=== PATIENT | male | born 1935 | race African-American/Black ===

== ENCOUNTER → 2016-12-12 | Outpatient (CLI) | payer OTHER ==
[~2016-12-12] MED LIST: IOPAMIDOL (ISOVUE-300) 100 ML BTL IV ONE
[2016-12-12 15:33] LABS: CREATININE 1.2 mg/dL (0.7-1.3)
== END ==
LOC: FIMAGING 14:38
PROVIDERS: ATTEND Urology
DX: R93.422 Abnormal radiologic findings on diagnostic imaging of left kidney (principal); R93.3 Abnormal findings on diagnostic imaging of other parts of digestive tract; M45.9 Ankylosing spondylitis of unspecified sites in spine; I72.8 Aneurysm of other specified arteries
CPT/HCPCS: 74170; Q9967

== ENCOUNTER → 2017-06-12 | Outpatient (CLI) | payer OTHER ==
[~2017-06-12] MED LIST changes: +IOPAMIDOL (ISOVUE 370) 100 ML BTL IV ONE; -IOPAMIDOL (ISOVUE-300) 100 ML BTL IV ONE
== END ==
LOC: FIMAGING 15:22
PROVIDERS: ATTEND Internal Medicine
DX: I25.10 Atherosclerotic heart disease of native coronary artery without angina pectoris (principal); I70.0 Atherosclerosis of aorta; M48.14 Ankylosing hyperostosis [Forestier], thoracic region
CPT/HCPCS: 71275; Q9967

== ENCOUNTER → 2018-08-12 | Outpatient (CLI) | payer OTHER ==
--- NOTE | 2018-08-12 16:21 | ECHO ---
[email or web address] [address] [address] Main: [phone] Fax: Transthoracic Echocardiogram Name: JOIE ANDERSON MR#: [id number] Study Date: 08/12/2018 Study Time: 02:09 PM Date of : 1935 Age: 83 year(s) Height: 180.3 cm (71 in.) Weight: 86.18 kg (190 lb.) BSA: 2.06 m2 Gender: Male Examination: Indication: SOB/Pacer Image Quality: Contrast: Requested by: Eri Crawford BP: / Heart Rate: Rhythm: Indication: SOB/Pacer Procedure Staff Subway Train Operator: Yoon Gomez [facility] Reading Physician: Eri Crawford MD Requesting Provider: Vipin Pena Conclusions: There is a pacemaker lead noted in the right ventricle. This was a modified Tacho protocol stress echo. LV segmental wall motion was normal pre and post exercise (with little or no increase in heart rate). RVSP was 33mmHG pre exercise. RVSP was 42-48mmHG post exercise. Pre exercise: mild AR Post exercise: moderate AR Pre exercise: mild TR Post exercise: moderate TR. No obvious ischemia at the level of stress achieved. The increase in PA pressures post exercise is unlikely to be clinically significant. Patient did have blunted blood pressure response to exercise. Please see dicated stress test report. Measurements: Chambers Valvular Assessment AV/MV Valvular Assessment TV/PV Normal Normal Normal Name Value Range Name Value Range Name Value Range AR (PHT): 505 ms ( - ) TR Vmax: 3.26 mm/s ( - ) TR PGmax: 43 mmHg ( - ) syst. PAP: 48 mmHg ( - ) Continued Measurements: Valvular Assessment AV/MV Valvular Assessment TV/PV Name Value Name Value AR Vmax: 3.92 cm/s CVP (est.): 5 mmHg Findings: Right Ventricle: There is a pacemaker lead noted in the right ventricle. Exam Comments: Patient: JOIE ANDERSON Study Date: 08/12/2018 Page 1 of 2 02:09 PM This was a modified Tacho protocol stress echo. LV segmental wall motion was normal pre and post exercise (with little or no increase in heart rate). RVSP was 33mmHG pre exercise. RVSP was 42-48mmHG post exercise. Pre exercise: mild AR Post exercise: moderate AR Pre exercise: mild TR Post exercise: moderate TR. (No Signature Object) Patient: JOIE ANDERSON Study Date: 08/12/2018 Page 2 of 2 02:09 PM [id number]
--- NOTE | 2018-08-12 19:11 | CPIP ---
DATE OF PROCEDURE: 08/12/2018 PROCEDURE: Exercise echocardiogram. INDICATION: Exertional dyspnea. DESCRIPTION OF PROCEDURE: Informed consent was obtained. The patient was established to the residential monitor. His pacemaker was interrogated. He then exercised on a modified Tacho protocol for 6 jeremiah danielle and 49 seconds achieving a workload of 3.7 METS. Test was stopped due to dyspnea. COMPLICATIONS: None. FINDINGS: 1. Pacemaker interrogation: The patient is 100% ventricularly paced because he has underlying compl ete heart block. His AV delay is 220 milliseconds. He did have a 23-hour episode of atrial fibrilla tion on March 25 of this year and otherwise has had short episodes of atrial tachycardia. With exer cise, the patient had an appropriate [place] sinus node response reaching 80 beats per minute with rogelio tricular pacing. There were no dropped beats. His rate responsiveness is set aggressively. It was felt that no modifications were needed for his pacemaker and the device is functioning normally. 2. EKG: The patient was A sensed, V paced and AV paced throughout the test. Therefore, the EKG is not interpretable for cardiac ischemia. 3. Hemodynamic response to exercise: The patient's heart rate increased appropriately from 64 beats per minute to 80 beats per minute. This was his own [place] sinus rhythm. Resting blood pressure wa s 108/60 and increased only to 110/60, which is a blunted response to exercise. His oxygen saturatio n remained above 90% throughout testing. 4. Pre-exercise echocardiogram: A limited echocardiogram shows normal LV systolic function without regional wall motion abnormality. Mild aortic and tricuspid regurgitation. Estimated pulmonary koko ry pressure 33 mmHg. 5. Immediate post-stress echocardiogram shows normal LV function without regional wall motion abnorm ality, although the patient did not reach 85% of age-predicted max heart rate. Therefore, this is no t diagnostic or exclusive for ischemia. His aortic regurgitation increased to the moderate range. H is tricuspid regurgitation increased to the moderate range, and his PA pressures increased slightly t o between 43 and 48 mmHg. CONCLUSIONS: 1. Normally functioning dual-chamber pacemaker with appropriate rate responsiveness. 2. No evidence of cardiac ischemia at the level of work load achieved. This was not a test designed to detect cardiac ischemia. 3. Blunted blood pressure response to exercise. Consideration for stopping Cartia and decreasing or stopping his diuretics. The patient reports that since being on Bumex for a week, his shortness of breath with exertion has not improved. 4. Valvular heart disease and pulmonary hypertension: This is in the rade-uy-kpcycjch range for bot h entities. I do not think that his valvular disease or pulmonary hypertension are significantly con tributing to symptoms at this time. Would recommend surveillance echocardiogram, next in 6 months. Approximately 40 minutes was spent in supervising the stress test, coordinating data, discussion with Dr. Pena. The patient is currently in stable condition and will follow up with Dr. Pena. /[id number]/MODL
== END ==
LOC: BCP 13:41
PROVIDERS: ATTEND Internal Medicine Cardiovascular Disease
DX: R06.09 Other forms of dyspnea (principal)

== ENCOUNTER 2018-08-20 07:37 | Day surgery (SDC) | payer OTHER ==
[2018-08-20] MEDS ORDERED: ceFAZolin 2 GM/DEXTROSE 100 ML IV ONE (07:50)
[2018-08-20] MEDS ORDERED: LR 1,000 ML IV ONE (07:51)
[2018-08-20] MEDS ORDERED: SODIUM BICARBONATE 50 MEQ/50 ML SYR ONE (07:52)
[2018-08-20] MEDS ORDERED: BUPIVACAINE 0.5% 30 ML SDV ONE (07:52)
[2018-08-20] MEDS ORDERED: HYDROGEN PEROXIDE 473 ML BOTTLE TP ONE (07:52)
[2018-08-20] MEDS ORDERED: LIDOCAINE 1% 300 MG/30 ML SDV ONE (07:52)
--- NOTE | 2018-08-20 08:04 | PDHPUP ---
History & Physical Update H&P update statement: This history and physical update is based on an assessment of the patient which was completed after admission or registration (within 24 hours), but prior to the surgery/procedure. H&P update: H&P reviewed & patient examined, no change in patient's condition since H&P completed
--- NOTE | 2018-08-20 09:56 | PDANEPAE ---
ANE History of Present Illness 83 yo with right breast mass ANE Past Medical History - Cardiovascular History Hx Hypertension: Yes Hx Arrhythmias: Yes Hx Chest Pain: No Hx Coronary Artery / Peripheral Vascular Disease: Yes Hx CHF / Valvular Disease: Yes Hx Palpitations: No Cardiovascular History Comment: Hx of HTN, however, recently taken off Cardia as pressures were low. SECOND DEGREE AV BLOCK MOBITZ II. THIRD DEGREE AV BLOCK. CARDIAC CATH/STENT/PACEMAKER 05/23/2015. tricuspid regurgitation - Pulmonary History Hx COPD: No Hx Asthma/Reactive Airway Disease: No Hx Recent Upper Respiratory Infection: No Hx Oxygen in Use at Home: Yes O2 in Use at Home (L/minute): 3L O2 @ noc w/Cpap Hx Sleep Apnea: Yes Sleep Apnea Screening Result - Last Documented: Positive Pulmonary History Comment: SILVINO - uses Cpap w/O2. recent issues with SOB with exertion - Neurologic History Hx Cerebrovascular Accident: No Hx Seizures: No Hx Dementia: No Neurologic History Comment: tingling in bilateral fingers - Endocrine History Hx Diabetes: No - Renal History Hx Renal Disorders: No - Liver History Hx Hepatic Disorders: No - Neurological & Psychiatric Hx Hx Neurological and Psychiatric Disorders: No - Cancer History Hx Cancer: Yes Cancer History Comment: PROSTATE CA, RAD 2000 - Congenital Disorder History Hx Congenital Disorders: No - GI History Hx Gastrointestinal Disorders: No - Other Health History Other Health History: wears glasses for reading. 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 osteoarthritis. right breast lump is tender to touch - Chronic Pain History Chronic Pain: No - Surgical History Prior Surgeries: CARDIAC CATH, STENT/PACEMAKER 05/23/2015. R & L HIP X5 TOTAL. KNEE CARTILECTOMY L. ROTATOR CUFF REPAIR R & L. CATARACT REMOVAL ANE Review of Systems Review of Systems: - Exercise capacity METS (RN): 3 METS - Pacemaker Pacemaker Type: Permanent Pacer/Defib Pacemaker Mold Parter: Biotronik Pacemaker Model: Eluna 8 DR-T Pacemaker Mode: DDD-CLS Pacemaker Set Rate: 60 Date Pacemaker Last Checked: 06/29/2018 ANE Patient History - Allergies Allergies/Adverse Reactions: No Known Allergies Allergy (Verified 08/18/18 17:45) - Home Medications Home Medications: Cholecalciferol Vit D3 [Vitamin D3 (*)] 05/23/15 [Last Taken 08/19/18] Alphagan P 0.15% 08/18/18 [Last Taken 08/20/18 06:30] Aspirin EC [Aspirin EC 81 mg (*)] 08/18/18 [Last Taken 08/18/18] Bumex (*) 08/18/18 [Last Taken 08/18/18] Cholestipol 08/18/18 [Last Taken 08/19/18] Docusate Sodium [Stool Softener] 08/18/18 [Last Taken 08/19/18] Dorzolamide 2% Eye Drop 08/18/18 [Last Taken 08/20/18 06:30] Insta-Flex 08/18/18 [Last Taken 08/18/18] Magnesium Oxide [Magnesium] 08/18/18 [Last Taken 08/19/18] Niacin [Slo-Niacin] 08/18/18 [Last Taken 08/19/18] Spironolactone [Aldactone 25 MG (*)] 08/18/18 [Last Taken 08/19/18] Travoprost [Travatan Z] 08/18/18 [Last Taken 08/19/18] - NPO status NPO Since - Liquids (Date): 08/20/18 NPO Since - Liquids (Time): 06:00 NPO Since - Solids (Date): 08/19/18 NPO Since - Solids (Time): 18:30 - Anes Hx Hx Anesthesia Complications (with details): "code blue" 1968 during RONI, multiple durgeries since without problems - Smoking Hx Smoking Status: Never smoked - Alcohol Use Alcohol Use: None - Family Anes Hx Family Hx Anesthesia Complications: NONE ANE Labs/Vital Signs - Vital Signs Blood Pressure: 109/68 Heart Rate: 68 Respiratory Rate: 18 O2 Sat (%): 97 Height: 180.34 cm Weight: 86.183 kg ANE Physical Exam - Airway Neck exam: FROM Mallampati Score: Class 1 Mouth exam: normal dental/mouth exam - Pulmonary Pulmonary: no respiratory distress, clear to auscultation - Cardiovascular Cardiovascular: regular rate and rhythym - ASA Status ASA Status: II
[2018-08-20] MEDS ORDERED: fentaNYL 100 MCG/2 ML INJ ONE ×2 (10:10→11:10)
[2018-08-20] MEDS ORDERED: PROPOFOL 200 MG/20 ML VIAL ONE (10:10)
[2018-08-20] MEDS: THROMBIN (BOVINE) 5,000 UNIT VIAL TP ONE ×2 (11:18→11:35)
[2018-08-20] MEDS ORDERED: NALOXONE HCL 0.4 MG/ML INJ IVP PRN (11:58)
[2018-08-20] MEDS ORDERED: fentaNYL 100 MCG/2 ML INJ IVP PRN (11:58)
[2018-08-20] MEDS ORDERED: PROMETHAZINE HCL 25 MG/ML INJ IVP PRN (11:58)
[2018-08-20] MEDS ORDERED: ONDANSETRON 4 MG/2 ML VIAL IVP PRN (11:58)
[2018-08-20] MEDS ORDERED: KETOROLAC 15 MG/1 ML SDV IVP ONE (12:00)
--- NOTE | 2018-08-20 12:01 | POSTANESTH ---
Post Anesthetic Evaluation Cardiovascular Status: Normal, Stable Respiratory Status: Normal, Stable Level of Consciousness/Mental Status: Can Participate in Eval Pain Control: Adequate, Prn Tx Ordered Nausea/Vomiting Control: Adequate, Prn Tx Ordered Complications Possibly Related to Anesthesia: None Noted
--- NOTE | 2018-08-20 12:05 | POSTOPPROG ---
Post Op Note Date of Operation: 08/20/18 Surgeon: Keo Zelaya Infant Teacher: Parish Anesthesiologist: Warm Anesthesia: GET(General Endotracheal) Pre-op Diagnosis: R breast mass Post-op Diagnosis: same Indication: Diagnosis Procedure: Right breast mass excision Findings: Specimen negative for malignancy per path Inf/Abcess present in the surg proc area at time of surgery?: No Depth: Superfical (Skin SQ) EBL: 50-100 Drains: Beka Falcon Specimen(s): Right breast mass
[2018-08-20] MEDS ORDERED: KETOROLAC 15 MG/1 ML SDV ONE (12:25)
[2018-08-20 13:32] VITALS: BP 114/75
--- NOTE | 2018-08-22 21:56 | GOP ---
DATE OF OPERATION: SURGEON: Keo Zelaya MD UX UI DESIGNER: Milly Lugo, Nurse Practitioner. ANESTHESIA: General endotracheal anesthesia. PREOPERATIVE DIAGNOSIS: Right breast mass. POSTOPERATIVE DIAGNOSIS: Probable gynecomastia, pathology pending. PROCEDURE PERFORMED: Right subcutaneous mastectomy. FINDINGS: The patient was found to have some extensive breast tissue measuring over 6 cm in diameter underneath the right areola. DESCRIPTION OF PROCEDURE: Patient was taken to the operating room where he received satisfactory gen eral endotracheal anesthesia. He was placed in supine position with the right arm outstretched on an arm board, prepped and draped in usual sterile fashion. A circumareolar incision was made and disse ction extended down through the subcutaneous tissue. The mass was encountered. It was dissected off the back of the areola, and the entire mass was freed up from the skin and subcutaneous tissue circu mferentially and then off the pectoral fascia. The mass turned out to be quite significant, extendin g laterally for several centimeters, leaving a fairly large defect. The specimen was sent to [facility] and thought to be benign. Final path is pending. Hemostasis was thoroughly obtained. The cavity was filled with some topical thrombin. It was also infiltrated after 0.5% Marcaine. A 15 round britta icone NNAMDI drain was brought out through a separate stab incision laterally, secured to the skin with a silk suture. The wound was then closed in layers using 3-0 Vicryl for the subcutaneous tissue and 4 -0 Monocryl subcuticular stitch for the skin. All layers were infiltrated with 0.5% Marcaine. The w ound was dressed with a pressure dressing. He tolerated the procedure well. There were no complicat ions. /[id number]/MODL
== END 2018-08-20 13:45 | disposition home or self-care (01) ==
LOC: FSGY 07:37
PROVIDERS: ATTEND Surgery
PROC: 0HBT0ZZ Excision of Right Breast, Open Approach (ICD-10-PCS; principal; 2018-08-20 09:15)
DX: N62 Hypertrophy of breast (principal); Z80.3 Family history of malignant neoplasm of breast; I25.10 Atherosclerotic heart disease of native coronary artery without angina pectoris; I48.91 Unspecified atrial fibrillation; Z95.0 Presence of cardiac pacemaker; Z95.5 Presence of coronary angioplasty implant and graft; Z96.643 Presence of artificial hip joint, bilateral
CPT/HCPCS: J0690; J1885; J2704; J3010

== ENCOUNTER → 2018-12-02 | Outpatient (CLI) | payer OTHER ==
[~2018-12-02] MED LIST changes: -IOPAMIDOL (ISOVUE 370) 100 ML BTL IV ONE; +IOPAMIDOL (ISOVUE-370) 150 ML BTL IV ONE
== END ==
LOC: FIMAGING 11:09
PROVIDERS: ATTEND Internal Medicine
DX: K80.20 Calculus of gallbladder without cholecystitis without obstruction (principal); M43.24 Fusion of spine, thoracic region; Z95.0 Presence of cardiac pacemaker; Z95.5 Presence of coronary angioplasty implant and graft
CPT/HCPCS: 71275; Q9967